=== PATIENT | female | born 1985 | race Caucasian/White ===

== ENCOUNTER 2023-03-06 08:55 | Emergency (ER) | payer OTHER, SELFPAY ==
--- NOTE | ~2023-03-06 | CT_ITS ---
Non-contrast Head CT History: Syncope, head trauma Technique: Axial non-contrast imaging of the brain was performed. Dose reduction technique was used on this scan by utilizing automated exposure control and iterative reconstruction technique. The dose -length product (DLP) was 605.33 mGy-cm. Findings: There is no evidence of intracranial hemorrhage, mass lesion, or acute infarct. Brain par enchyma appears normal. The ventricles and subarachnoid spaces are normal in size. The calvarium ap pears normal. The visualized paranasal sinuses and mastoid air cells are clear. Impression: No significant abnormality seen. Reviewed, dictated and finalized at location . Impression: No significant abnormality seen.
[2023-03-06 09:04] VITALS: BP 144/90; PULSE 88; RESP 16; TEMP 37; O2SAT 100
--- NOTE | 2023-03-06 09:12 | ECG_ITS ---
Measurements Intervals [place] Rate: 78 P: 41 SC: 134 QRS: 21 QRSD: 92 T: 23 QT: 381 QTc: 437 Interpretive Statements SINUS RHYTHM NONSPECIFIC T-WAVE ABNORMALITY- ANT/INF LEADS BASELINE ARTIFACT- I, II, III, AVR, AVL, AVF, V1 BORDERLINE ECG NO PREVIOUS ECG AVAILABLE FOR COMPARISON Electronically Signed On 03-06-2023 9:33:48 CDT by Tan Garcia D.O.
--- NOTE | 2023-03-06 09:23 | PC.NURSE ---
Pt ambulates into ER c/o an episode of syncope after vomiting and fell. PT states around 0200 this morning while at work felt like she was going to vomit. States she got out of her vehicle and vomited. States she fell like she was going to pass out. States next thing she knew she woke up with coworkers asking if she was ok. Pt fell onto her face and has a lac to the bridge of her nose. Pt also has abrasions to her right cheek. States at this moment she feels weak and shaky. Hx of ADHD. States she ate recently ate before this happened. C/o pain to her lips and two front teeth from hitting the floor. Denies CP and SOB.
[2023-03-06] MEDS: SODIUM CHLORIDE 0.9% IV 1,000 ML 999 ML IV CONT (09:55)
[2023-03-06 10:04] LABS: Basophils Absolute Auto 0.1 K/mm3 (0.0-0.1); Basophils Percent Auto 0.5 % (0.2-1.2); Eosinophils Percent Auto 0.3 % (0-4.4); Hematocrit 42.4 % (37.0-47.0); Hemoglobin 14.1 g/dL (12.0-15.0); Immature Granulocyte Absolute 0.04 K/mm3 (0.00-0.031); Immature Granulocyte Percent A 0.4 % (0-0.5); Lymphocytes Percent Auto 17.1 % (18.3-44.2); Mean Corpuscular HGB Conc 33.3 g/dl (32-36); Mean Corpuscular Hemoglobin 30.5 pg (26-34); Mean Corpuscular Volume 91.6 fl (80-100); Monocytes Absolute Auto 0.6 K/mm3 (0.1-0.6); Monocytes Percent Auto 5.7 % (2.6-8.5); Neutrophils Absolute Auto 8.5 K/mm3 (1.3-6.7); Platelet Count Result 329 k/mm3 (150-375); Red Blood Count 4.63 M/mm3 (4.2-5.4); Red Cell Distribution Width 13.6 % (11.5-14.5); White Blood Count 11.1 K/mm3 (4.5-10.0)
[2023-03-06 10:07] VITALS: BP 112/67; PULSE 72
[2023-03-06 10:10] VITALS: BP 120/85; PULSE 81
[2023-03-06 10:13] LABS: Alanine Aminotransferase 23 U/L (6-35); Albumin Level 4.6 g/dL (3.5-5.1); Alkaline Phosphatase 139 U/L (38-126); Anion Gap 9 mmol/L (8-16); Aspartate Amino Transferase 22 U/L (14-36); Bilirubin,Total 0.6 mg/dL (0.2-1.3); Blood Urea Nitrogen 11 mg/dL (7-17); Calcium 9.2 mg/dL (8.4-10.2); Carbon Dioxide 28 mmol/L (22-30); Chloride 100 mmol/L (98-107); Estimated CRCL calculation 88 ml/min; Estimated Glomerular Filt Rate > 60; Glucose 115 mg/dL (65-110); Magnesium 2.2 mg/dL (1.6-2.3); Potassium 3.7 mmol/L (3.4-5.0); Sodium 137 mmol/L (137-145)
[2023-03-06 11:33] VITALS: BP 112/74; PULSE 78; RESP 12; O2SAT 100
--- NOTE | 2023-03-06 12:03 | ED.SYNCOPE ---
HPI - Syncope General Chief Complaint: Syncope Stated Complaint: syncopal episode - sent from Time Seen by Provider: 03/06/23 09:11 History of Present Illness HPI narrative: Patient was at work yesterday when she got very nauseous, she then bent over to throw up and then lost consciousness, entire episode lasted less than a minute per witnesses, afterwards she felt fine just a little bit weak. She went to urgent care today to get checked out and they sent her to the hospital she denies any chest pain, difficulty breathing, no family history of any cardiac abnormalities. Related Data Home Medications Medication Instructions Recorded Confirmed bupropion HCl 300 mg 24 hr tablet, mg PO 03/06/23 extended release prazosin 1 mg capsule mg 03/06/23 vilazodone 20 mg tablet mg 03/06/23 03/06/23 viloxazine 200 mg capsule,extended mg PO 03/06/23 release 24 hr ([facility]) Allergies Allergy/AdvReac Type Severity Reaction Status Date / Time No Known Allergies Allergy Verified 03/06/23 09:06 Review of Systems Review of Systems: CONST: No fever. HEENT: Head trauma with bruising to nose C/V: No chest pain RESP: No cough GI: Nausea vomiting has resolved : No dysuria. M/S: No joint pain. SKIN: Some abrasions to the face NEURO: [No headache or focal numbness or weakness] PSYCH: [No depression] Exam Narrative: EXAMINATION OF ORGAN SYSTEMS/BODY AREAS: Constitutional: Vital signs per nursing GENERAL:[No acute distress, non-toxic appearing.] HEAD: Normal with no signs of head trauma. EYES: EOMI, conjunctiva normal ENT: Abrasions to bridge of nose, tiny superficial laceration to philtrum LUNGS: Nonlabored breathing. HEART: [Regular rate and rhythm] ABD: [Soft], [nontender to palpation] EXT: Normal range of motion SKIN: Abrasions to bridge of nose, tiny superficial laceration to philtrum NEURO: [Alert and oriented x 3. No gross focal sensory or strength deficits.] PSYCH: Normal affect Course Vital Signs Vital signs: Vital Signs Temperature 98.6 F 03/06/23 09:04 Pulse Rate 88 03/06/23 09:04 Respiratory Rate 16 03/06/23 09:04 Blood Pressure 144/90 H 03/06/23 09:04 Pulse Oximetry 100 03/06/23 09:04 Temperature 98.6 F 03/06/23 09:04 Pulse Rate 78 03/06/23 11:33 Respiratory Rate 12 03/06/23 11:33 Blood Pressure 112/74 03/06/23 11:33 Pulse Oximetry 100 03/06/23 11:33 MDM - Syncope MDM Narrative Medical decision making narrative: 37-year-old female with no past medical history presenting after she syncopized when she threw up, vital signs stable here, on exam she is well-appearing, abdomen is soft and nontender, NIH of scale 0, she has no focal neurologic deficits, she does have abrasions to her nose and a small superficial laceration to her philtrum. Informed consent obtained for laceration repair of philtrum laceration, this 0.5 cm laceration was cleaned well with saline and then Hibiclens, then small amount of skin glue used to approximate the wound, patient tolerated this well. Other abrasions were cleaned and dressed. Syncope work-up initiated, labs are within acceptable limits, EKG - 12-Lead: Performed at 0918. Interpreted by me. [Sinus rhythm]. Rate 78. [Normal] axis. IA-interval [normal]. QRS duration [normal]. QTc [normal]. [No ST segment elevation or depression]. [T-wave normal]. Impression: No EKG evidence of acute ischemia or dysrhythmia. CT head obtained here does not show any acute abnormality. Orthostatic vitals here are normal. Patient feeling better after IV fluids, she would like to go home at this time, return precautions are provided and she is to follow-up with her doctor. She is in agreement with this management Lab Data 03/06/23 09:57 03/06/23 09:57 Labs: Lab Results 03/06/23 Range/Units 09:57 WBC 11.1 H (4.5-10.0) K/mm3 RBC 4.63 (4.2-5.4) M/mm3 Hgb 14.1 (12.0-15.0) g/dL Hct 42.4 (37.0-47.0)
== END 2023-03-06 12:12 | disposition home or self-care (01) ==
PROVIDERS: Emergency Provider Emergency Medicine; PCP Physician Assistant
DX: R55 Syncope and collapse (principal); S01.81XA Laceration without foreign body of other part of head, initial encounter; R94.31 Abnormal electrocardiogram [ECG] [EKG]; W18.39XA Other fall on same level, initial encounter
CPT/HCPCS: 36415; 70450; 80053; 81025; 83735; 85025; 93005; 96360; 99284; J7030

== ENCOUNTER 2025-03-24 13:10 | Outpatient (CLI) | payer OTHER, SELFPAY ==
--- NOTE | ~2025-03-24 | US_ITS ---
Pelvic ultrasound. Clinical History: First trimester , establish dates and viability Technique: Realtime transabdominal and transvaginal scanning of the pelvis was performed. Color flow Doppler and Doppler spectral analysis were performed. Findings: The uterus is anteverted, and contains an intrauterine gestation. [place]-rump length of 2.8 cm corresponds to an estimated gestational age of 9 weeks 4 days. heart rate is 162 bpm. The right ovary is not visualized. No significant right ovarian or adnexal mass is seen. The left ovary measures 3.2 x 2.1 x 4.4 cm. No significant left ovarian or adnexal mass is seen. There is no evidence of free fluid in the cul de sac. Impression: Live intrauterine gestation, with estimated gestational age of 9 weeks 4 days. heart rate is 16 2 bpm. Reviewed, dictated and finalized at [facility]. Impression: Live intrauterine gestation, with estimated gestational age of 9 weeks 4 days. heart rate is 162 bpm.
== END 2025-03-24 13:11 | disposition home or self-care (01) ==
LOC: MICIMG 13:11
PROVIDERS: PCP Student in an Organized Health Care Education/Training Program; Visit Provider Student in an Organized Health Care Education/Training Program
DX: Z34.90 Encounter for supervision of normal pregnancy, unspecified, unspecified trimester (principal)
CPT/HCPCS: 76801; 76817